=== PATIENT | male | born 1975 | race African-American/Black ===

== ENCOUNTER 2018-10-26 09:24 | Inpatient (IN) | payer OTHER ==
[2018-10-26 10:27] VITALS: BMI 26.6
--- NOTE | 2018-10-26 11:43 | HP ---
CIWA Score Nausea/Vomitin Muscle Tremors: 2 Anxiety: 2 Agitation: 2 Paroxysmal Sweats: 1-Minimal Palms Moist Orientation: 0-Oriented Tacttile Disturbances: 1-Very Mild Itch/Numbness Auditory Disturbances: 1-Very Mild Visual Disturbances: 0-None Headache: 2-Mild CIWA-Ar Total Score: 13 - Admission Criteria [facility]AS[facility] Guidelines: Admission for Medically Managed Detox: Requires at least one of the followin. CIWA greater than 12 2. Seizures within the past 24 hours 3. Delirium tremens within the past 24 hours 4. Hallucinations within the past 24 hours 5. Acute intervention needed for co occurring medical disorder 6. Acute intervention needed for co occurring psychiatric disorder 7. Severe withdrawal that cannot be handled at a lower level of care (continued vomiting, continued diarrhea, abnormal vital signs) requiring intravenous medication and/or fluids 8. Admission ROS [facility] - HPI Chief Complaint: i need help to stop drinking alcohol,cocaine,marijuana,valium and crystal meth Allergies/Adverse Reactions: Allergies Allergy/AdvReac Type Severity Reaction Status Date / Time No Known Allergies Allergy Verified 10/26/18 10:18 History of Present Illness: this 43 years old male with alcohol dependence,also cocaine,marijuana and crystal meth,and valium. withdrawal symptom,seeking detox,last detox 06/30 did not recall the facility multiple admissions in detox syncope hiv positive since 1995,no med weight loss nicotine dependence 1 pack/day,does not want nicotine replacement chronic low back pain and right sciatica for 6 years anxiety,depression,insomnia longest sobriety 8 years plan for rehab after detox history of syphilis treated Exam Limitations: No Limitations - Ebola screening Have you traveled outside of the country in the last 21 days: No Have you had contact with anyone from an Ebola affected area: No Do you have a fever: No - Review of Systems Constitutional: Chills, Loss of Appetite, Malaise, Night Sweats, Changes in sleep, Weakness, Unintentional Wgt. Loss EENT: reports: Nose Congestion Respiratory: reports: No Symptoms reported, Other (childhood asthma no medication) Cardiac: reports: No Symptoms Reported GI: reports: Nausea, Vomiting, Abdominal cramping : reports: No Symptoms Reported Musculoskeletal: reports: Back Pain, Muscle Pain Integumentary: reports: Dryness Neuro: reports: Headache, Tremors Endocrine: reports: No Symptoms Reported Hematology: reports: No Symptoms Reported, Other (hiv) Psychiatric: reports: No Sypmtoms Reported, Judgement Intact, Mood/Affect Appropiate, Orientated x3, Anxious, Depressed, other (insomnia) Patient History - Patient Medical History Hx Anemia: No Hx Asthma: Yes (childhood asthma) Hx Chronic Obstructive Pulmonary Disease (COPD): No Hx Cancer: No Hx Cardiac Disorders: No Hx Congestive Heart Failure: No Hx Hypertension: No Hx Hypercholesterolemia: No Hx Pacemaker: No HX Cerebrovascular Accident: No Hx Seizures: No Hx Dementia: No Hx Diabetes: No Hx Gastrointestinal Disorders: No Hx Liver Disease: No Hx Genitourinary Disorders: No Hx Sexually Transmitted Disorders: Yes (treated for syphilis in the past) Hx Renal Disease (ESRD): No Hx Thyroid Disease: No Hx Human Immunodeficiency Virus (HIV): Yes (since 1995) Hx Hepatitis C: No Hx Depression: Yes (anxiety) Hx Suicide Attempt: No Hx Bipolar Disorder: No Hx Schizophrenia: No Other Medical History: no suicidal,no homicidal,low back pain with sciatica left - Patient Surgical History Past Surgical History: No - PPD History Previous Implant?: Yes Documented Results: Negative w/o proof Implanted On Prior [facility] Admission?: No PPD to be Administered?: No - Smoking Cessation Smoking history: Current every day smoker Have you smoked in the past 12 months: Yes Aproximately how many cigarettes per day: 20 Hx Chewing Tobacco Use: No Initiated information on smoking cessation: Yes 'Breaking Loose' booklet given: 10/26/18 - Substance & Tx. History Hx Alcohol Use: Yes Hx Substance Use: Yes Substance Use Type: Alcohol, Cocaine, Marijuana Hx Substance Use Treatment: Yes (06/30 [facility]) - Substances abused Alcohol Substance route: Oral Frequency: Daily Amount used: 5 CANS OF BEER OF 40 OZS, 14 BOTTLE TEQUILLA Age of first use: 13 Date of last use: 10/26/18 Marijuana/Hashish Substance route: Smoking Frequency: Daily Amount used: 1 BLUNT Age of first use: 12 Date of last use: 10/25/18 Other Other (specify): VALIUM Substance route: Oral Frequency: 3-6 times per week Amount used: 2-4 BARS Age of first use: 24 Date of last use: 10/25/18 Cocaine Substance route: Inhalation Frequency: 3-6 times per week Amount used: $50 Age of first use: 25 Date of last use: 10/26/18 Crystal meth Substance route: Injection Frequency: 3-6 times per week Amount used: 1/2 GRAM Age of first use: 32 Date of last use: 10/26/18 Family Disease History - Family Disease History Family History: Denies Admission Physical Exam [facility] - Vital Signs Vital Signs: Vital Signs - 24 hr 10/26/18 10/26/18 10:04 10:39 Temperature 97.5 F L 97.5 F L Pulse Rate 99 H 99 H Respiratory 20 20 Rate Blood Pressure 107/69 107/69 - Physical General Appearance: Yes: Moderate Distress, Tremorous, Irritable, Sweating, Anxious HEENTM: Yes: Normal ENT Inspection, ISABEL, Pharynx Normal Respiratory: Yes: Lungs Clear, Normal Breath Sounds, No Respiratory Distress ( childhood asthma) Neck: Yes: Within Normal Limits, Supple, Trachea in good position Breast: Yes: Within Normal Limits Cardiology: Yes: Within Normal Limits, Regular Rhythm, Regular Rate, S1, S2 Abdominal: Yes: Within Normal Limits, Normal Bowel Sounds, Non Tender, Flat, Soft Genitourinary: Yes: Within Normal Limits Back: Yes: Muscle Spasm Musculoskeletal: Yes: Back pain, Muscle Pain Extremities: Yes: Within Normal Limits, Normal Range of Motion, Tremors Neurological: Yes: 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 technologist II-XII NML intact, Fully Oriented, Alert, Motor Strength 5/5 Integumentary: Yes: Dry Lymphatic: Yes: Within Normal Limits - Diagnostic (1) Alcohol dependence with uncomplicated withdrawal Current Visit: Yes Status: Acute (2) Weight loss Current Visit: Yes Status: Acute (3) HIV (human immunodeficiency virus infection) Current Visit: Yes Status: Acute (4) Nicotine dependence Current Visit: Yes Status: Acute (5) Low back pain Current Visit: Yes Status: Acute (6) Sciatica of left side Current Visit: Yes Status: Acute (7) Dehydration Current Visit: Yes Status: Acute (8) Insomnia Current Visit: Yes Status: Acute (9) Anxiety and depression Current Visit: Yes Status: Acute Cleared for Admission [facility] - Detox or Rehab [facility] Level of Care: Medically Managed Detox Regimen/Protocol: Librium Breathalyzer - Breathalyzer Breathalyzer: 0.06 Urine Drug Screen - Test Device Lot number: [id number] Expiration date: 08/11/20 - Control Is test valid?: Yes - Results Drug screen NEGATIVE: No Urine drug screen results: THC-Marijuana, SEGUNDO-Cocaine, MET-Methamphetamine, AMP- Amphetamines, BZO-Benzodiazepines Inpatient Rehab Admission - Rehab Decision to Admit Inpatient rehab admission?: No
[2018-10-26] MEDS ORDERED: IBUPROFEN 400 MG TABLET (FP) PO PRN (11:59)
[2018-10-26] MEDS ORDERED: MAG HYDROX/AL HYDROX/SIMETH 30 ML UNIT-DOSE CUP PO PRN (11:59)
[2018-10-26] MEDS ORDERED: MENTHOL/PHENOL 1 EACH UD MM PRN (11:59)
[2018-10-26] MEDS ORDERED: chlordiazePOXIDE HCL 25 MG CAPSULE PO PRN (11:59)
[2018-10-26] MEDS ORDERED: MELATONIN 5 MG TABLETS PO PRN (11:59)
[2018-10-26] MEDS ORDERED: METHOCARBAMOL 500 MG TABLET PO PRN (11:59)
[2018-10-26] MEDS ORDERED: MAGNESIUM CITRATE 300 ML BOTTLE PO PRN (11:59)
[2018-10-26] MEDS ORDERED: hydrOXYzine PAMOATE 25 MG CAPSULE (FP) PO PRN (11:59)
[2018-10-26] MEDS ORDERED: MAGNESIUM HYDROX 2400MG/30ML ORAL SUSPENSION 30 ML CUP PO PRN (11:59)
[2018-10-26] MEDS ORDERED: ACETAMINOPHEN 325 MG TABLET (FP) PO PRN ×2 (11:59)
[2018-10-26] MEDS ORDERED: BISMUTH SUBSALICYLATE 524 MG/30 ML UD PO PRN (11:59)
[2018-10-26] MEDS ORDERED: ALBUTEROL SO4 8 GM HFA INHALER IH PRN (12:08)
[2018-10-26 14:46] LABS: HEMATOCRIT 39.9 % (35.4-49); HEMOGLOBIN 13.8 GM/dL (11.7-16.9); MCH 33.6 pg (25.7-33.7); MCHC 34.6 g/dl (32.0-35.9); MEAN CELL VOLUME 97.2 fl (80-96); MEAN PLT VOLUME 8.9 fl (7.5-11.1); PLATELET COUNT 217 K/MM3 (134-434); RDW 14.6 % (11.9-15.9); WHITE BLOOD COUNT 3.4 K/mm3 (4.0-10.0)
[2018-10-26 15:07] LABS: ALBUMIN 3.5 g/dl (3.4-5.0); BILIRUBIN,TOTAL 0.8 mg/dL (0.2-1); CALCIUM 8.6 mg/dL (8.5-10.1); CREATININE 0.9 mg/dL (0.55-1.3); POTASSIUM 4.2 mmol/L (3.5-5.1); TOT PROT 9.2 g/dl (6.4-8.2)
[2018-10-26] MEDS: chlordiazePOXIDE HCL 25 MG CAPSULE PO SCH ×2 (17:04→22:03)
[2018-10-26] MEDS: THIAMINE HCL 100 MG TABLET (FP) PO SCH (22:03)
[2018-10-26] MEDS: GABAPENTIN 300 MG CAPSULE (FP) PO SCH (22:03)
[2018-10-27] MEDS: chlordiazePOXIDE HCL 25 MG CAPSULE PO SCH ×4 (05:43→22:07)
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
--- NOTE | 2018-10-27 10:35 | PN ---
[facility] CIWA - CIWA Score Nausea/Vomitin-Mild Nausea/No Vomiting Muscle Tremors: 3 Anxiety: 3 Agitation: 3 Paroxysmal Sweats: 1-Minimal Palms Moist Orientation: 1-Uncertain about Date Tacttile Disturbances: 0-None Auditory Disturbances: 0-None Visual Disturbances: 0-None Headache: 0-None Present CIWA-Ar Total Score: 12 S Progress Note (SOAP) Subjective: 43 years old male admitted on 10/26/18 for alcohol withdrawal sx medical history of asthma and bipolar II last psychotropic medication unknown will review mental health recommendation Objective: 10/27/18 10:38 Vital Signs Temperature 97.3 F L 10/27/18 09:03 Pulse Rate 84 10/27/18 09:03 Respiratory Rate 18 10/27/18 09:03 Blood Pressure 112/67 10/27/18 09:03 O2 Sat by Pulse Oximetry (%) Laboratory Last Values WBC 3.4 K/mm3 (4.0-10.0) L 10/26/18 12:00 RBC 4.10 M/mm3 (4.00-5.60) 10/26/18 12:00 Hgb 13.8 GM/dL (11.7-16.9) 10/26/18 12:00 Hct 39.9 % (35.4-49) 10/26/18 12:00 MCV 97.2 fl (80-96) H 10/26/18 12:00 MCH 33.6 pg (25.7-33.7) 10/26/18 12:00 MCHC 34.6 g/dl (32.0-35.9) 10/26/18 12:00 RDW 14.6 % (11.9-15.9) 10/26/18 12:00 Plt Count 217 K/MM3 (134-434) 10/26/18 12:00 MPV 8.9 fl (7.5-11.1) 10/26/18 12:00 Sodium 138 mmol/L (136-145) 10/26/18 12:00 Potassium 4.2 mmol/L (3.5-5.1) 10/26/18 12:00 Chloride 102 mmol/L (98-107) 10/26/18 12:00 Carbon Dioxide 31 mmol/L (21-32) 10/26/18 12:00 Anion Gap 6 MMOL/L (8-16) L 10/26/18 12:00 BUN 9.0 mg/dL (7-18) 10/26/18 12:00 Creatinine 0.9 mg/dL (0.55-1.3) 10/26/18 12:00 Est GFR (CKD-EPI)AfAm 119.13 10/26/18 12:00 Est GFR (CKD-EPI)NonAf 102.79 10/26/18 12:00 Random Glucose 100 mg/dL (74-106) 10/26/18 12:00 Calcium 8.6 mg/dL (8.5-10.1) 10/26/18 12:00 Total Bilirubin 0.8 mg/dL (0.2-1) 10/26/18 12:00 AST 101 U/L (15-37) H 10/26/18 12:00 ALT 166 U/L (13-61) H 10/26/18 12:00 Alkaline Phosphatase 96 U/L (45-117) 10/26/18 12:00 Total Protein 9.2 g/dl (6.4-8.2) H 10/26/18 12:00 Albumin 3.5 g/dl (3.4-5.0) 10/26/18 12:00 lab noted ast elevation repeat ast Assessment: 10/27/18 10:40 alcohol withdrawal sx Plan: continue alcohol detox
[2018-10-27] MEDS: PRENATAL VITAMINS W/ FOLIC ACID TABLET (FP) PO SCH (10:54)
[2018-10-27] MEDS: GABAPENTIN 300 MG CAPSULE (FP) PO SCH ×2 (10:54→22:07)
[2018-10-27] MEDS: ASPIRIN COATED 81 MG TABLET.EC PO SCH (10:55)
[2018-10-27 11:20] LABS: RPR REACTIVE 1:8 (NONREACTIVE)
[2018-10-27] MEDS ORDERED: PENICILLIN G BENZATHINE 2,400,000 UNIT/4 ML PFS IM ONE (14:21)
[2018-10-27 14:30] LABS: TREPONEMA ANTIBODY REACTIVE (NONREACTIVE)
--- NOTE | 2018-10-27 14:46 | EKG ---
Test Reason : Blood Pressure : / mmHG Vent. Rate : 085 BPM Atrial Rate : 085 BPM P-R Int : 148 ms QRS Dur : 082 ms QT Int : 382 ms P-R-T Axes : 072 065 060 degrees QTc Int : 454 ms NORMAL SINUS RHYTHM NORMAL ECG NO PREVIOUS ECGS AVAILABLE Confirmed by Lowell Villela MD ([id number]) on 10/27/2018 2:45:40 PM Referred By: LEBRON SHEPPARD Confirmed By:Lowell Villela MD
[2018-10-27 17:08] LABS: PH,URINE 5.5 (5.0-8.0); URINE APPEARANCE CLEAR; URINE BILIRUBIN NEGATIVE (NEGATIVE); URINE COLOR DK YELLOW; URINE GLUCOSE (UA) NEGATIVE (NEGATIVE); URINE KETONE NEGATIVE (NEGATIVE); URINE LEUK ESTERASE NEGATIVE (NEGATIVE); URINE NITRITE NEGATIVE (NEGATIVE); URINE PROTEIN NEGATIVE (NEGATIVE)
[2018-10-27] MEDS: QUEtiapine FUMARATE 100 MG TABLET (FP) PO SCH (22:07)
[2018-10-27] MEDS: THIAMINE HCL 100 MG TABLET (FP) PO SCH (22:07)
[2018-10-28] MEDS: chlordiazePOXIDE HCL 25 MG CAPSULE PO SCH ×4 (06:44→22:29)
[2018-10-28] MEDS: GABAPENTIN 300 MG CAPSULE (FP) PO SCH ×2 (10:32→22:29)
[2018-10-28] MEDS: PRENATAL VITAMINS W/ FOLIC ACID TABLET (FP) PO SCH (10:32)
[2018-10-28] MEDS: ASPIRIN COATED 81 MG TABLET.EC PO SCH (10:33)
--- NOTE | 2018-10-28 13:17 | PN ---
[facility] CIWA - CIWA Score Nausea/Vomitin-Mild Nausea/No Vomiting Muscle Tremors: 3 Anxiety: 3 Agitation: 3 Paroxysmal Sweats: 1-Minimal Palms Moist Orientation: 0-Oriented Tacttile Disturbances: 0-None Auditory Disturbances: 0-None Visual Disturbances: 0-None Headache: 0-None Present CIWA-Ar Total Score: 11 [facility] Progress Note (SOAP) Subjective: received Penicillin IM yesterday for + rpr tolerate well ambulating on hallway social with peers tremor mild anxiety Objective: 10/28/18 13:19 Vital Signs Temperature 97.0 F L 10/28/18 13:12 Pulse Rate 93 H 10/28/18 13:12 Respiratory Rate 20 10/28/18 13:12 Blood Pressure 111/70 10/28/18 13:12 O2 Sat by Pulse Oximetry (%) Laboratory Last Values WBC 3.4 K/mm3 (4.0-10.0) L 10/26/18 12:00 RBC 4.10 M/mm3 (4.00-5.60) 10/26/18 12:00 Hgb 13.8 GM/dL (11.7-16.9) 10/26/18 12:00 Hct 39.9 % (35.4-49) 10/26/18 12:00 MCV 97.2 fl (80-96) H 10/26/18 12:00 MCH 33.6 pg (25.7-33.7) 10/26/18 12:00 MCHC 34.6 g/dl (32.0-35.9) 10/26/18 12:00 RDW 14.6 % (11.9-15.9) 10/26/18 12:00 Plt Count 217 K/MM3 (134-434) 10/26/18 12:00 MPV 8.9 fl (7.5-11.1) 10/26/18 12:00 Sodium 138 mmol/L (136-145) 10/26/18 12:00 Potassium 4.2 mmol/L (3.5-5.1) 10/26/18 12:00 Chloride 102 mmol/L (98-107) 10/26/18 12:00 Carbon Dioxide 31 mmol/L (21-32) 10/26/18 12:00 Anion Gap 6 MMOL/L (8-16) L 10/26/18 12:00 BUN 9.0 mg/dL (7-18) 10/26/18 12:00 Creatinine 0.9 mg/dL (0.55-1.3) 10/26/18 12:00 Est GFR (CKD-EPI)AfAm 119.13 10/26/18 12:00 Est GFR (CKD-EPI)NonAf 102.79 10/26/18 12:00 Random Glucose 100 mg/dL (74-106) 10/26/18 12:00 Calcium 8.6 mg/dL (8.5-10.1) 10/26/18 12:00 Total Bilirubin 0.8 mg/dL (0.2-1) 10/26/18 12:00 AST 101 U/L (15-37) H 10/26/18 12:00 ALT 166 U/L (13-61) H 10/26/18 12:00 Alkaline Phosphatase 96 U/L (45-117) 10/26/18 12:00 Total Protein 9.2 g/dl (6.4-8.2) H 10/26/18 12:00 Albumin 3.5 g/dl (3.4-5.0) 10/26/18 12:00 Urine Color Dk yellow 10/27/18 13:40 Urine Appearance Clear 10/27/18 13:40 Urine pH 5.5 (5.0-8.0) 10/27/18 13:40 Ur Specific [place] 1.017 (1.010-1.035) 10/27/18 13:40 Urine Protein Negative (NEGATIVE) 10/27/18 13:40 Urine Glucose (UA) Negative (NEGATIVE) 10/27/18 13:40 Urine Ketones Negative (NEGATIVE) 10/27/18 13:40 Urine Blood Negative (NEGATIVE) 10/27/18 13:40 Urine Nitrite Negative (NEGATIVE) 10/27/18 13:40 Urine Bilirubin Negative (NEGATIVE) 10/27/18 13:40 Urine Urobilinogen 1.0 mg/dL (0.2-1.0) 10/27/18 13:40 Ur Leukocyte Esterase Negative (NEGATIVE) 10/27/18 13:40 RPR Titer Reactive 1:8 (NONREACTIVE) H 10/26/18 12:00 T.pallidum Ab (MHA) Reactive (NONREACTIVE) 10/26/18 12:00 lab noted Assessment: 10/28/18 13:19 alcohol withdrawal sx Plan: continue alcohol detox
[2018-10-28] MEDS: QUEtiapine FUMARATE 100 MG TABLET (FP) PO SCH (22:29)
[2018-10-28] MEDS: THIAMINE HCL 100 MG TABLET (FP) PO SCH (22:29)
[2018-10-29] MEDS ORDERED: chlordiazePOXIDE HCL 10 MG CAPSULE PO PRN
[2018-10-29] MEDS: chlordiazePOXIDE HCL 10 MG CAPSULE PO SCH ×4 (05:26→22:19)
[2018-10-29] MEDS: PRENATAL VITAMINS W/ FOLIC ACID TABLET (FP) PO SCH (10:46)
[2018-10-29] MEDS: GABAPENTIN 300 MG CAPSULE (FP) PO SCH ×2 (10:46→22:18)
[2018-10-29] MEDS: ASPIRIN COATED 81 MG TABLET.EC PO SCH (10:46)
--- NOTE | 2018-10-29 13:57 | PN ---
[facility] CIWA - CIWA Score Nausea/Vomitin-No Nausea/No Vomiting Muscle Tremors: 2 Anxiety: 2 Agitation: 2 Paroxysmal Sweats: 1-Minimal Palms Moist Orientation: 0-Oriented Tacttile Disturbances: 0-None Auditory Disturbances: 0-None Visual Disturbances: 0-None Headache: 1-Very Mild CIWA-Ar Total Score: 8 S Progress Note (SOAP) Subjective: mild tremor otherwise doing ok mild anxiety tolerate food and fluid well Objective: 10/29/18 13:58 Vital Signs Temperature 96.7 F L 10/29/18 13:30 Pulse Rate 89 10/29/18 13:30 Respiratory Rate 18 10/29/18 13:30 Blood Pressure 103/66 10/29/18 13:30 O2 Sat by Pulse Oximetry (%) Laboratory Last Values WBC 3.4 K/mm3 (4.0-10.0) L 10/26/18 12:00 RBC 4.10 M/mm3 (4.00-5.60) 10/26/18 12:00 Hgb 13.8 GM/dL (11.7-16.9) 10/26/18 12:00 Hct 39.9 % (35.4-49) 10/26/18 12:00 MCV 97.2 fl (80-96) H 10/26/18 12:00 MCH 33.6 pg (25.7-33.7) 10/26/18 12:00 MCHC 34.6 g/dl (32.0-35.9) 10/26/18 12:00 RDW 14.6 % (11.9-15.9) 10/26/18 12:00 Plt Count 217 K/MM3 (134-434) 10/26/18 12:00 MPV 8.9 fl (7.5-11.1) 10/26/18 12:00 Sodium 138 mmol/L (136-145) 10/26/18 12:00 Potassium 4.2 mmol/L (3.5-5.1) 10/26/18 12:00 Chloride 102 mmol/L (98-107) 10/26/18 12:00 Carbon Dioxide 31 mmol/L (21-32) 10/26/18 12:00 Anion Gap 6 MMOL/L (8-16) L 10/26/18 12:00 BUN 9.0 mg/dL (7-18) 10/26/18 12:00 Creatinine 0.9 mg/dL (0.55-1.3) 10/26/18 12:00 Est GFR (CKD-EPI)AfAm 119.13 10/26/18 12:00 Est GFR (CKD-EPI)NonAf 102.79 10/26/18 12:00 Random Glucose 100 mg/dL (74-106) 10/26/18 12:00 Calcium 8.6 mg/dL (8.5-10.1) 10/26/18 12:00 Total Bilirubin 0.8 mg/dL (0.2-1) 10/26/18 12:00 AST 80 U/L (15-37) H 10/29/18 07:00 ALT 166 U/L (13-61) H 10/26/18 12:00 Alkaline Phosphatase 96 U/L (45-117) 10/26/18 12:00 Total Protein 9.2 g/dl (6.4-8.2) H 10/26/18 12:00 Albumin 3.5 g/dl (3.4-5.0) 10/26/18 12:00 Urine Color Dk yellow 10/27/18 13:40 Urine Appearance Clear 10/27/18 13:40 Urine pH 5.5 (5.0-8.0) 10/27/18 13:40 Ur Specific [place] 1.017 (1.010-1.035) 10/27/18 13:40 Urine Protein Negative (NEGATIVE) 10/27/18 13:40 Urine Glucose (UA) Negative (NEGATIVE) 10/27/18 13:40 Urine Ketones Negative (NEGATIVE) 10/27/18 13:40 Urine Blood Negative (NEGATIVE) 10/27/18 13:40 Urine Nitrite Negative (NEGATIVE) 10/27/18 13:40 Urine Bilirubin Negative (NEGATIVE) 10/27/18 13:40 Urine Urobilinogen 1.0 mg/dL (0.2-1.0) 10/27/18 13:40 Ur Leukocyte Esterase Negative (NEGATIVE) 10/27/18 13:40 RPR Titer Reactive 1:8 (NONREACTIVE) H 10/26/18 12:00 T.pallidum Ab (MHA) Reactive (NONREACTIVE) 10/26/18 12:00 TB (QFT) Incubation (.) 10/26/18 12:00 TB Test (QFT) Nil 0.05 IU/mL (.) 10/26/18 12:00 TB Test (QFT) Mitogen >10.00 IU/mL (.) 10/26/18 12:00 TB Test (QFT) Antigen 0.08 IU/mL (.) 10/26/18 12:00 TB Test (QFT) Negative (Negative) 10/26/18 12:00 TB Positive Criteria (.) 10/26/18 12:00 lab noted Assessment: 10/29/18 13:58 alcohol withdrawal sx Plan: continue alcohol detox
[2018-10-29] MEDS: QUEtiapine FUMARATE 100 MG TABLET (FP) PO SCH (22:18)
[2018-10-29] MEDS: THIAMINE HCL 100 MG TABLET (FP) PO SCH (22:18)
[2018-10-30] MEDS ORDERED: chlordiazePOXIDE HCL 10 MG CAPSULE PO SCH (05:00)
[2018-10-30 09:26] VITALS: BP 105/69; PULSE 96; TEMP 98.1
[2018-10-30] MEDS: PRENATAL VITAMINS W/ FOLIC ACID TABLET (FP) PO SCH (10:28)
[2018-10-30] MEDS: GABAPENTIN 300 MG CAPSULE (FP) PO SCH (10:28)
[2018-10-30] MEDS: ASPIRIN COATED 81 MG TABLET.EC PO SCH (10:29)
--- NOTE | 2018-10-30 18:17 | PN ---
[facility] CIWA - CIWA Score Nausea/Vomitin-No Nausea/No Vomiting Muscle Tremors: None Anxiety: 0-No Anxiety, at Ease Agitation: 1-Slight > Activity Paroxysmal Sweats: No Perspiration Orientation: 0-Oriented Tacttile Disturbances: 0-None Auditory Disturbances: 0-None Visual Disturbances: 0-None Headache: 0-None Present CIWA-Ar Total Score: 1 [facility] Progress Note (SOAP) Subjective: Patient denies current Withdrawal / Detox symptoms and reports that he feels well overall at this time. Objective: PATIENT A & O X 3, OBSERVED AMBULATING ON UNIT UNASSISTED. IN NO ACUTE DISTRESS. 10/30/18 18:16 Vital Signs Temperature 98.1 F 10/30/18 09:25 Pulse Rate 96 H 10/30/18 09:25 Respiratory Rate 16 10/30/18 09:25 Blood Pressure 105/69 10/30/18 09:25 O2 Sat by Pulse Oximetry (%) Laboratory Tests 10/26/18 10/26/18 10/26/18 12:00 12:00 12:00 WBC 3.4 L RBC 4.10 Hgb 13.8 Hct 39.9 MCV 97.2 H MCH 33.6 MCHC 34.6 RDW 14.6 Plt Count 217 MPV 8.9 Sodium 138 Potassium 4.2 Chloride 102 Carbon Dioxide 31 Anion Gap 6 L BUN 9.0 Creatinine 0.9 Est GFR (CKD-EPI)AfAm 119.13 Est GFR (CKD-EPI)NonAf 102.79 Random Glucose 100 Calcium 8.6 Total Bilirubin 0.8 AST 101 H ALT 166 H Alkaline Phosphatase 96 Total Protein 9.2 H Albumin 3.5 Urine Color Urine Appearance Urine pH Ur Specific [place] Urine Protein Urine Glucose (UA) Urine Ketones Urine Blood Urine Nitrite Urine Bilirubin Urine Urobilinogen Ur Leukocyte Esterase RPR Titer Reactive 1:8 H T.pallidum Ab (MHA) Reactive TB (QFT) Incubation TB Test (QFT) Nil TB Test (QFT) Mitogen TB Test (QFT) Antigen TB Test (QFT) TB Positive Criteria 10/26/18 10/27/18 10/29/18 12:00 13:40 07:00 WBC RBC Hgb Hct MCV MCH MCHC RDW Plt Count MPV Sodium Potassium Chloride Carbon Dioxide Anion Gap BUN Creatinine Est GFR (CKD-EPI)AfAm Est GFR (CKD-EPI)NonAf Random Glucose Calcium Total Bilirubin AST 80 H ALT Alkaline Phosphatase Total Protein Albumin Urine Color Dk yellow Urine Appearance Clear Urine pH 5.5 Ur Specific [place] 1.017 Urine Protein Negative Urine Glucose (UA) Negative Urine Ketones Negative Urine Blood Negative Urine Nitrite Negative Urine Bilirubin Negative Urine Urobilinogen 1.0 Ur Leukocyte Esterase Negative RPR Titer T.pallidum Ab (MHA) TB (QFT) Incubation TB Test (QFT) Nil 0.05 TB Test (QFT) Mitogen >10.00 TB Test (QFT) Antigen 0.08 TB Test (QFT) Negative TB Positive Criteria LABS NOTED. Assessment: 10/30/18 18:16 COMPLETION OF DETOX REGIMEN. 10/30/18 18:17 Plan: SINCE PATIENT DENIES CURRENT WITHDRAWAL / DETOX SYMPTOMS AND REPORTS THAT HE FEELS WELL OVERALL, AT PATIENTS REQUEST, HE WAS GRANTED AN EARLY DISCHARGE FROM DETOX UNIT TODAY SO THAT HE MAY PROCEED ON TO [facility] - [facility] ([place], [place]).
--- NOTE | 2018-10-30 18:24 | DS ---
[facility] Detox Discharge Summary Admission Date: 10/26/18 Discharge Date: 10/30/18 - History Present History: Alcohol Dependence, Cocaine Dependence Additional Comments: PATIENT DENIES CURRENT WITHDRAWAL / DETOX SYMPTOMS AND REPORTS THAT HE FEELS WELL OVERALL AT TIME OF DISCHARGE FROM DETOX UNIT. PATIENT GOING TO [facility] ([place]) FOR AFTERCARE. PATIENT ADVISED TO FOLLOW-UP WITH PACKAGING ASSEMBLER AFTER DISCHARGE FROM REHAB FOR GENERAL MEDICAL ASSESSMENT AND FOR ELEVATED LIVER ENZYMES AND FOR LOW WBC LEVEL NOTED ON DETOX ADMISSION LABORATORY ASSESSMENT. PATIENT VERBALIZED UNDERSTANDING OF RECOMMENDATION. COPIES OF RESULTS OF ALL LABS DRAWN WHILE ADMITTED FOR DETOX GIVEN TO PATIENT AT TIME OF DISCHARGE FROM DETOX UNIT. PATIENT WAS DISCHARGED FROM DETOX UNIT IN STABLE MEDICAL CONDITION. Pertinent Past History: H.I.V., Nicotine Dependence, History Of Lower Back Pain, History of Sciatica ( Left-Sided), Anxiety, Depression, Dehydration, Insomnia, History Of Mood Disorder, Methamphetamine Dependence, History Of Syncope, History Of Syphilis ( Treated), History Of Asthma (During Childhood). - Physical Exam Results Vital Signs: Vital Signs Temperature 98.1 F 10/30/18 09:25 Pulse Rate 96 H 10/30/18 09:25 Respiratory Rate 16 10/30/18 09:25 Blood Pressure 105/69 10/30/18 09:25 O2 Sat by Pulse Oximetry (%) Pertinent Admission Physical Exam Findings: WITHDRAWAL SYMPTOMS. Laboratory Tests 10/26/18 10/26/18 10/26/18 12:00 12:00 12:00 WBC 3.4 L RBC 4.10 Hgb 13.8 Hct 39.9 MCV 97.2 H MCH 33.6 MCHC 34.6 RDW 14.6 Plt Count 217 MPV 8.9 Sodium 138 Potassium 4.2 Chloride 102 Carbon Dioxide 31 Anion Gap 6 L BUN 9.0 Creatinine 0.9 Est GFR (CKD-EPI)AfAm 119.13 Est GFR (CKD-EPI)NonAf 102.79 Random Glucose 100 Calcium 8.6 Total Bilirubin 0.8 AST 101 H ALT 166 H Alkaline Phosphatase 96 Total Protein 9.2 H Albumin 3.5 Urine Color Urine Appearance Urine pH Ur Specific Cascade Urine Protein Urine Glucose (UA) Urine Ketones Urine Blood Urine Nitrite Urine Bilirubin Urine Urobilinogen Ur Leukocyte Esterase RPR Titer Reactive 1:8 H T.pallidum Ab (MHA) Reactive TB (QFT) Incubation TB Test (QFT) Nil TB Test (QFT) Mitogen TB Test (QFT) Antigen TB Test (QFT) TB Positive Criteria 10/26/18 10/27/18 10/29/18 12:00 13:40 07:00 WBC RBC Hgb Hct MCV MCH MCHC RDW Plt Count MPV Sodium Potassium Chloride Carbon Dioxide Anion Gap BUN Creatinine Est GFR (CKD-EPI)AfAm Est GFR (CKD-EPI)NonAf Random Glucose Calcium Total Bilirubin AST 80 H ALT Alkaline Phosphatase Total Protein Albumin Urine Color Dk yellow Urine Appearance Clear Urine pH 5.5 Ur Specific Cascade 1.017 Urine Protein Negative Urine Glucose (UA) Negative Urine Ketones Negative Urine Blood Negative Urine Nitrite Negative Urine Bilirubin Negative Urine Urobilinogen 1.0 Ur Leukocyte Esterase Negative RPR Titer T.pallidum Ab (MHA) TB (QFT) Incubation TB Test (QFT) Nil 0.05 TB Test (QFT) Mitogen >10.00 TB Test (QFT) Antigen 0.08 TB Test (QFT) Negative TB Positive Criteria LABS NOTED. - Treatment Hospital Course: Detox Protocol Followed, Detoxed Safely, Responded well, Discharged Condition Good, Rehab Referral Accepted Patient has Accepted a Rehab Referral to: [facility] ([place], [place]). - Medication Discharge Medications: Ambulatory Orders Gabapentin [Neurontin] 300 mg PO BID 10/26/18 Quetiapine Fumarate [Seroquel -] 100 mg PO HS 10/26/18 - Diagnosis (1) Alcohol dependence with uncomplicated withdrawal Status: Acute (2) Anxiety and depression Status: Acute (3) Cocaine dependence Status: Acute Qualifiers: Substance use status: uncomplicated Qualified Code(s): F14.20 - Cocaine dependence, uncomplicated (4) Dehydration Status: Acute (5) Drug-induced mood disorder Status: Acute (6) HIV (human immunodeficiency virus infection) Status: Acute Qualifiers: HIV symptom status: unspecified Qualified Code(s): B20 - Human immunodeficiency virus [HIV] disease (7) Insomnia Status: Acute Qualifiers: Insomnia type: unspecified Qualified Code(s): G47.00 - Insomnia, unspecified (8) Low back pain Status: Acute Qualifiers: Chronicity: unspecified Back pain laterality: unspecified Sciatica presence: with sciatica Sciatica laterality: sciatica of right side Qualified Code(s): M54.41 - Lumbago with sciatica, right side (9) Methamphetamine dependence Status: Acute (10) Nicotine dependence Status: Acute Qualifiers: Nicotine product type: cigarettes Substance use status: uncomplicated Qualified Code(s): F17.210 - Nicotine dependence, cigarettes, uncomplicated (11) Sciatica of left side Status: Acute (12) Substance-induced sleep disorder Status: Acute (13) Weight loss Status: Acute (14) Mood disorder Status: Chronic - AMA Did Patient Leave Against Medical Advice: No
[2018-10-31] MEDS ORDERED: chlordiazePOXIDE HCL 10 MG CAPSULE PO ONE (05:00)
== END 2018-10-30 11:55 | disposition home or self-care (01) | DRG 774 ==
LOC: YASAS 09:24 → Y3N 11:58
PROVIDERS: ADMIT Surgery; ATTEND Surgery
PROC: HZ2ZZZZ Detoxification Services for Substance Abuse Treatment (ICD-10-PCS; principal; 2018-10-26)
DX: F10.230 Alcohol dependence with withdrawal, uncomplicated (principal); F14.20 Cocaine dependence, uncomplicated; F15.20 Other stimulant dependence, uncomplicated; F17.210 Nicotine dependence, cigarettes, uncomplicated; F32.9 Major depressive disorder, single episode, unspecified; F41.9 Anxiety disorder, unspecified; F19.24 Other psychoactive substance dependence with psychoactive substance-induced mood disorder; F19.282 Other psychoactive substance dependence with psychoactive substance-induced sleep disorder; F39 Unspecified mood [affective] disorder; E86.0 Dehydration; Z21 Asymptomatic human immunodeficiency virus [HIV] infection status; G47.00 Insomnia, unspecified; M54.41 Lumbago with sciatica, right side; M54.42 Lumbago with sciatica, left side; R63.4 Abnormal weight loss; R74.0 Nonspecific elevation of levels of transaminase and lactic acid dehydrogenase [LDH]; Z87.438 Personal history of other diseases of male genital organs
CPT/HCPCS: 36415; 80053; 81003; 84450; 85027; 86480; 86593; 86780; 93005; 93010

== ENCOUNTER 2020-10-19 18:13 | Inpatient (IN) | payer OTHER ==
[2020-10-19 21:10] VITALS: BMI 33.5
[2020-10-19] MEDS ORDERED: LORazepam 1 MG TABLET PO PRN (21:33)
[2020-10-19] MEDS ORDERED: MAGNESIUM CITRATE 300 ML BOTTLE PO PRN (21:39)
[2020-10-19] MEDS ORDERED: ACETAMINOPHEN 325 MG TABLET (FP) PO PRN ×2 (21:39)
[2020-10-19] MEDS ORDERED: MENTHOL/PHENOL 1 EACH UD MM PRN (21:39)
[2020-10-19] MEDS ORDERED: BISMUTH SUBSALICYLATE 524 MG/30 ML PO PRN (21:39)
[2020-10-19] MEDS ORDERED: MAGNESIUM HYDROX 2400MG/30ML ORAL SUSPENSION 30 ML CUP PO PRN (21:39)
[2020-10-19] MEDS ORDERED: MAG HYDROX/AL HYDROX/SIMETH 30 ML UNIT-DOSE CUP PO PRN (21:39)
[2020-10-19] MEDS ORDERED: NICOTINE POLACRILEX 2 MG GUM BUC PRN (21:39)
[2020-10-19] MEDS ORDERED: ONDANSETRON *ODT* 4 MG TABLET SL PRN (21:39)
[2020-10-19] MEDS ORDERED: hydrOXYzine PAMOATE 25 MG CAPSULE (FP) PO ONE (23:16)
[2020-10-19] MEDS ORDERED: LORazepam 2 MG TABLET ONE (23:16)
[2020-10-19] MEDS: LORazepam 2 MG TABLET PO SCH (23:26)
[2020-10-19] MEDS: hydrOXYzine PAMOATE 25 MG CAPSULE (FP) PO SCH (23:26)
[2020-10-19] MEDS: MELATONIN 5 MG TABLETS PO SCH (23:26)
[2020-10-19] MEDS: THIAMINE HCL 100 MG TABLET (FP) PO SCH (23:27)
[2020-10-20] MEDS ORDERED: METHOCARBAMOL 500 MG TABLET ONE (04:36)
[2020-10-20] MEDS: METHOCARBAMOL 500 MG TABLET PO PRN ×2 (04:40→11:46)
[2020-10-20] MEDS ORDERED: LORazepam 2 MG TABLET ONE (06:08)
[2020-10-20] MEDS ORDERED: IBUPROFEN 400 MG TABLET (FP) PO ONE (06:09)
[2020-10-20] MEDS: LORazepam 2 MG TABLET PO SCH ×4 (06:16→23:07)
[2020-10-20] MEDS: IBUPROFEN 400 MG TABLET (FP) PO PRN (06:17)
[2020-10-20] MEDS ORDERED: hydrOXYzine PAMOATE 25 MG CAPSULE (FP) PO ONE (07:10)
[2020-10-20] MEDS: hydrOXYzine PAMOATE 25 MG CAPSULE (FP) PO SCH ×5 (07:14→23:07)
[2020-10-20] MEDS: PRENATAL VITAMINS W/ FOLIC ACID TABLET (FP) PO SCH (11:46)
[2020-10-20 13:15] LABS: HEMATOCRIT 38.3 % (35.4-49); HEMOGLOBIN 13.4 GM/dL (11.7-16.9); MCH 32.8 pg (25.7-33.7); MCHC 34.9 g/dl (32.0-35.9); MEAN CELL VOLUME 93.9 fl (80-96); MEAN PLT VOLUME 9.3 fl (7.5-11.1); PLATELET COUNT 173 10^3/uL (134-434); RBC 4.08 M/mm3 (4.00-5.60); RDW 13.3 % (11.9-15.9); WHITE BLOOD COUNT 3.4 K/mm3 (4.0-10.0)
[2020-10-20 13:53] LABS: ALBUMIN 3.6 g/dl (3.4-5.0); BLOOD UREA NITROGEN 13.1 mg/dL (7-18); CALCIUM 8.7 mg/dL (8.5-10.1)
[2020-10-20 13:56] LABS: CREATININE 0.8 mg/dL (0.55-1.3)
[2020-10-20 13:58] LABS: BILIRUBIN,TOTAL 0.7 mg/dL (0.2-1); TOT PROT 7.5 g/dl (6.4-8.2)
[2020-10-20] MEDS: THIAMINE HCL 100 MG TABLET (FP) PO SCH (23:07)
[2020-10-20] MEDS: MELATONIN 5 MG TABLETS PO SCH (23:07)
[2020-10-21] MEDS: METHOCARBAMOL 500 MG TABLET PO PRN (02:16)
[2020-10-21] MEDS: hydrOXYzine PAMOATE 25 MG CAPSULE (FP) PO SCH ×5 (06:13→22:53)
[2020-10-21] MEDS: LORazepam 1 MG TABLET PO SCH ×5 (06:14→22:53)
[2020-10-21] MEDS: PRENATAL VITAMINS W/ FOLIC ACID TABLET (FP) PO SCH (10:45)
[2020-10-21] MEDS: IBUPROFEN 400 MG TABLET (FP) PO PRN ×2 (10:50→17:58)
[2020-10-21] MEDS: MELATONIN 5 MG TABLETS PO SCH (22:53)
[2020-10-21] MEDS: THIAMINE HCL 100 MG TABLET (FP) PO SCH (22:53)
[2020-10-22] MEDS ORDERED: LORazepam 0.5 MG TABLET PO PRN
[2020-10-22] MEDS: hydrOXYzine PAMOATE 25 MG CAPSULE (FP) PO SCH ×5 (05:22→22:30)
[2020-10-22] MEDS: LORazepam 0.5 MG TABLET PO SCH ×4 (05:22→22:29)
[2020-10-22] MEDS: PRENATAL VITAMINS W/ FOLIC ACID TABLET (FP) PO SCH (10:30)
[2020-10-22] MEDS: METHOCARBAMOL 500 MG TABLET PO PRN (10:32)
[2020-10-22] MEDS: THIAMINE HCL 100 MG TABLET (FP) PO SCH (22:30)
[2020-10-22] MEDS: MELATONIN 5 MG TABLETS PO SCH (22:30)
[2020-10-23] MEDS ORDERED: LORazepam 0.5 MG TABLET PO ONE (05:00)
[2020-10-23] MEDS: hydrOXYzine PAMOATE 25 MG CAPSULE (FP) PO SCH ×4 (06:02→18:00)
[2020-10-23] MEDS: PRENATAL VITAMINS W/ FOLIC ACID TABLET (FP) PO SCH (10:19)
[2020-10-23 18:02] VITALS: BP 132/92; PULSE 104; TEMP 96.4
== END 2020-10-23 18:01 | disposition other institution (70) | DRG 774 ==
LOC: YASAS 18:13 → Y3N 10-20 10:15
PROVIDERS: ADMIT Allergy & Immunology; ATTEND Allergy & Immunology
PROC: HZ2ZZZZ Detoxification Services for Substance Abuse Treatment (ICD-10-PCS; principal; 2020-10-20)
DX: F13.230 Sedative, hypnotic or anxiolytic dependence with withdrawal, uncomplicated (principal); F14.20 Cocaine dependence, uncomplicated; F15.20 Other stimulant dependence, uncomplicated; F12.20 Cannabis dependence, uncomplicated; F17.210 Nicotine dependence, cigarettes, uncomplicated; F25.9 Schizoaffective disorder, unspecified; F32.9 Major depressive disorder, single episode, unspecified; F43.10 Post-traumatic stress disorder, unspecified; Z21 Asymptomatic human immunodeficiency virus [HIV] infection status
CPT/HCPCS: 36415; 80053; 85027; 86593; 86780; C9803; U0003; U0005

== ENCOUNTER 2020-10-23 18:01 | Inpatient (IN) | payer OTHER ==
[2020-10-23] MEDS ORDERED: MAG HYDROX/AL HYDROX/SIMETH 30 ML UNIT-DOSE CUP PO PRN (19:38)
[2020-10-23] MEDS ORDERED: P-EPHED 60MG/TRIPROLIDI 2.5MG TABLET PO PRN (19:38)
[2020-10-23] MEDS ORDERED: MENTHOL/PHENOL 1 EACH UD MM PRN (19:38)
[2020-10-23] MEDS ORDERED: LOPERAMIDE HCL 2 MG CAPSULE PO PRN (19:38)
[2020-10-23] MEDS ORDERED: MAGNESIUM CITRATE 300 ML BOTTLE PO PRN (19:38)
[2020-10-23] MEDS ORDERED: ACETAMINOPHEN 325 MG TABLET (FP) PO PRN (19:38)
[2020-10-23] MEDS ORDERED: NICOTINE POLACRILEX 2 MG GUM BUC PRN (19:38)
[2020-10-23] MEDS ORDERED: guaiFENesin 200 MG/10 ML 10 ML UNIT-DOSE CUPS PO PRN (19:38)
[2020-10-23] MEDS ORDERED: MAGNESIUM HYDROX 2400MG/30ML ORAL SUSPENSION 30 ML CUP PO PRN (19:38)
[2020-10-23] MEDS: NICOTINE 7 MG/24 HOURS TOPICAL PATCH TD SCH (20:38)
[2020-10-23] MEDS: PRENATAL VITAMINS W/ FOLIC ACID TABLET (FP) PO SCH (20:38)
[2020-10-23] MEDS: hydrOXYzine PAMOATE 25 MG CAPSULE (FP) PO SCH (21:42)
[2020-10-23] MEDS: THIAMINE HCL 100 MG TABLET (FP) PO SCH (21:42)
[2020-10-23] MEDS: IBUPROFEN 400 MG TABLET (FP) PO PRN (21:43)
[2020-10-23] MEDS ORDERED: MELATONIN 5 MG TABLETS PO SCH (22:00)
[2020-10-24] MEDS: hydrOXYzine PAMOATE 25 MG CAPSULE (FP) PO SCH ×5 (07:01→21:14)
[2020-10-24] MEDS: IBUPROFEN 400 MG TABLET (FP) PO PRN (07:01)
[2020-10-24] MEDS: NICOTINE 7 MG/24 HOURS TOPICAL PATCH TD SCH (09:50)
[2020-10-24] MEDS: PRENATAL VITAMINS W/ FOLIC ACID TABLET (FP) PO SCH (09:50)
[2020-10-24] MEDS ORDERED: LIDOCAINE 5% TOPICAL PATCH TP ONE (15:36)
[2020-10-24] MEDS: QUEtiapine FUMARATE 50 MG TABLET PO SCH (21:14)
[2020-10-24] MEDS: GABAPENTIN 300 MG CAPSULE PO SCH (21:14)
[2020-10-24] MEDS: THIAMINE HCL 100 MG TABLET (FP) PO SCH (21:14)
[2020-10-24] MEDS: LIDOCAINE PATCH REMOVAL MC SCH (21:40)
[2020-10-24] MEDS ORDERED: LIDOCAINE PATCH REMOVAL MC SCH (22:00)
[2020-10-25] MEDS: hydrOXYzine PAMOATE 25 MG CAPSULE (FP) PO SCH ×2 (06:54→10:01)
[2020-10-25] MEDS ORDERED: PT OWN MED DRAWER 7, Y5N ONE (09:11)
[2020-10-25] MEDS: LIDOCAINE 5% TOPICAL PATCH TP SCH (09:59)
[2020-10-25] MEDS: PRENATAL VITAMINS W/ FOLIC ACID TABLET (FP) PO SCH (09:59)
[2020-10-25] MEDS: NICOTINE 7 MG/24 HOURS TOPICAL PATCH TD SCH (10:00)
[2020-10-25] MEDS: IBUPROFEN 400 MG TABLET (FP) PO PRN ×2 (10:01→17:49)
[2020-10-25] MEDS: LIDOCAINE PATCH REMOVAL MC SCH (21:17)
[2020-10-25] MEDS: GABAPENTIN 300 MG CAPSULE PO SCH (21:17)
[2020-10-25] MEDS: QUEtiapine FUMARATE 50 MG TABLET PO SCH (21:17)
[2020-10-25] MEDS: THIAMINE HCL 100 MG TABLET (FP) PO SCH (21:17)
[2020-10-26] MEDS: PRENATAL VITAMINS W/ FOLIC ACID TABLET (FP) PO SCH (10:01)
[2020-10-26] MEDS: LIDOCAINE 5% TOPICAL PATCH TP SCH (10:02)
[2020-10-26] MEDS: NICOTINE 7 MG/24 HOURS TOPICAL PATCH TD SCH (10:02)
[2020-10-26] MEDS: METHOCARBAMOL 500 MG TABLET PO PRN ×2 (10:03→20:07)
[2020-10-26] MEDS: IBUPROFEN 400 MG TABLET (FP) PO PRN (10:03)
[2020-10-26] MEDS: LIDOCAINE PATCH REMOVAL MC SCH (22:01)
[2020-10-26] MEDS: QUEtiapine FUMARATE 50 MG TABLET PO SCH (22:02)
[2020-10-26] MEDS: THIAMINE HCL 100 MG TABLET (FP) PO SCH (22:02)
[2020-10-26] MEDS: GABAPENTIN 300 MG CAPSULE PO SCH (22:02)
[2020-10-27] MEDS: NICOTINE 7 MG/24 HOURS TOPICAL PATCH TD SCH (09:53)
[2020-10-27] MEDS: LIDOCAINE 5% TOPICAL PATCH TP SCH (09:53)
[2020-10-27] MEDS: METHOCARBAMOL 500 MG TABLET PO PRN ×2 (09:54→22:23)
[2020-10-27] MEDS: hydrOXYzine PAMOATE 25 MG CAPSULE (FP) PO PRN ×2 (09:54→22:23)
[2020-10-27] MEDS: PRENATAL VITAMINS W/ FOLIC ACID TABLET (FP) PO SCH (09:54)
[2020-10-27] MEDS ORDERED: COVID-19 VAC,AD26(JANSSEN)/PF 0.5 ML IM ONE (10:00)
[2020-10-27] MEDS: GABAPENTIN 100 MG CAPSULE PO SCH (14:18)
[2020-10-27] MEDS: THIAMINE HCL 100 MG TABLET (FP) PO SCH (22:23)
[2020-10-27] MEDS: GABAPENTIN 300 MG CAPSULE PO SCH (22:23)
[2020-10-27] MEDS: QUEtiapine FUMARATE 200 MG TABLET PO SCH (22:24)
[2020-10-27] MEDS: IBUPROFEN 400 MG TABLET (FP) PO PRN (22:24)
[2020-10-27] MEDS: LIDOCAINE PATCH REMOVAL MC SCH (22:26)
[2020-10-28] MEDS: GABAPENTIN 100 MG CAPSULE PO SCH ×2 (07:20→14:37)
[2020-10-28] MEDS: PRENATAL VITAMINS W/ FOLIC ACID TABLET (FP) PO SCH (10:01)
[2020-10-28] MEDS: NICOTINE 7 MG/24 HOURS TOPICAL PATCH TD SCH (10:02)
[2020-10-28] MEDS: LIDOCAINE 5% TOPICAL PATCH TP SCH (10:02)
[2020-10-28] MEDS: IBUPROFEN 400 MG TABLET (FP) PO PRN ×2 (10:04→19:52)
[2020-10-28] MEDS: METHOCARBAMOL 500 MG TABLET PO PRN ×2 (10:04→19:52)
[2020-10-28] MEDS: GABAPENTIN 300 MG CAPSULE PO SCH (21:16)
[2020-10-28] MEDS: THIAMINE HCL 100 MG TABLET (FP) PO SCH (21:16)
[2020-10-28] MEDS: QUEtiapine FUMARATE 200 MG TABLET PO SCH (21:16)
[2020-10-28] MEDS: LIDOCAINE PATCH REMOVAL MC SCH (21:16)
[2020-10-29] MEDS: GABAPENTIN 100 MG CAPSULE PO SCH ×2 (07:02→14:28)
[2020-10-29] MEDS: PRENATAL VITAMINS W/ FOLIC ACID TABLET (FP) PO SCH (09:37)
[2020-10-29] MEDS: NICOTINE 7 MG/24 HOURS TOPICAL PATCH TD SCH (09:38)
[2020-10-29] MEDS: LIDOCAINE 5% TOPICAL PATCH TP SCH (09:38)
[2020-10-29] MEDS: METHOCARBAMOL 500 MG TABLET PO PRN ×2 (09:39→17:46)
[2020-10-29] MEDS: IBUPROFEN 400 MG TABLET (FP) PO PRN ×2 (09:40→17:25)
[2020-10-29] MEDS: LIDOCAINE PATCH REMOVAL MC SCH (21:17)
[2020-10-29] MEDS: THIAMINE HCL 100 MG TABLET (FP) PO SCH (21:17)
[2020-10-29] MEDS: GABAPENTIN 300 MG CAPSULE PO SCH (21:17)
[2020-10-29] MEDS: QUEtiapine FUMARATE 200 MG TABLET PO SCH (21:17)
[2020-10-30] MEDS: GABAPENTIN 100 MG CAPSULE PO SCH ×2 (07:00→14:09)
[2020-10-30] MEDS: IBUPROFEN 400 MG TABLET (FP) PO PRN ×2 (07:01→20:11)
[2020-10-30] MEDS: NICOTINE 7 MG/24 HOURS TOPICAL PATCH TD SCH (10:07)
[2020-10-30] MEDS: PRENATAL VITAMINS W/ FOLIC ACID TABLET (FP) PO SCH (10:07)
[2020-10-30] MEDS: LIDOCAINE 5% TOPICAL PATCH TP SCH (10:07)
[2020-10-30] MEDS: METHOCARBAMOL 500 MG TABLET PO PRN ×2 (10:08→21:21)
[2020-10-30] MEDS: THIAMINE HCL 100 MG TABLET (FP) PO SCH (21:20)
[2020-10-30] MEDS: GABAPENTIN 300 MG CAPSULE PO SCH (21:21)
[2020-10-30] MEDS: LIDOCAINE PATCH REMOVAL MC SCH (21:21)
[2020-10-30] MEDS: QUEtiapine FUMARATE 200 MG TABLET PO SCH (21:21)
[2020-10-31] MEDS: GABAPENTIN 100 MG CAPSULE PO SCH ×2 (06:32→14:12)
[2020-10-31] MEDS: IBUPROFEN 400 MG TABLET (FP) PO PRN ×2 (06:33→21:41)
[2020-10-31] MEDS: LIDOCAINE 5% TOPICAL PATCH TP SCH (09:54)
[2020-10-31] MEDS: PRENATAL VITAMINS W/ FOLIC ACID TABLET (FP) PO SCH (09:54)
[2020-10-31] MEDS: NICOTINE 7 MG/24 HOURS TOPICAL PATCH TD SCH (09:54)
[2020-10-31] MEDS: METHOCARBAMOL 500 MG TABLET PO PRN ×2 (09:55→21:39)
[2020-10-31] MEDS ORDERED: GABAPENTIN 100 MG CAPSULE PO STA (14:52)
[2020-10-31] MEDS: HYDROCORTISONE 0.5% TOPICAL CREAM 30 GM TUBE TP PRN (15:43)
[2020-10-31] MEDS: LIDOCAINE PATCH REMOVAL MC SCH (21:39)
[2020-10-31] MEDS: QUEtiapine FUMARATE 200 MG TABLET PO SCH (21:39)
[2020-10-31] MEDS: THIAMINE HCL 100 MG TABLET (FP) PO SCH (21:39)
[2020-10-31] MEDS: GABAPENTIN 300 MG CAPSULE PO SCH (21:40)
[2020-11-01] MEDS ORDERED: PT OWN MED DRAWER 7, Y5N ONE ×2 (04:52→21:19)
[2020-11-01] MEDS: GABAPENTIN 300 MG CAPSULE PO SCH ×3 (06:22→21:16)
[2020-11-01] MEDS: NICOTINE 7 MG/24 HOURS TOPICAL PATCH TD SCH (09:46)
[2020-11-01] MEDS: PRENATAL VITAMINS W/ FOLIC ACID TABLET (FP) PO SCH (09:46)
[2020-11-01] MEDS: METHOCARBAMOL 500 MG TABLET PO PRN ×2 (09:47→21:15)
[2020-11-01] MEDS: IBUPROFEN 400 MG TABLET (FP) PO PRN ×2 (09:47→21:17)
[2020-11-01] MEDS: LIDOCAINE 5% TOPICAL PATCH TP SCH (09:48)
[2020-11-01] MEDS: QUEtiapine FUMARATE 200 MG TABLET PO SCH (21:15)
[2020-11-01] MEDS: THIAMINE HCL 100 MG TABLET (FP) PO SCH (21:16)
[2020-11-01] MEDS: hydrOXYzine PAMOATE 25 MG CAPSULE (FP) PO PRN (21:16)
[2020-11-01] MEDS: HYDROCORTISONE 0.5% TOPICAL CREAM 30 GM TUBE TP PRN (21:19)
[2020-11-01] MEDS: LIDOCAINE PATCH REMOVAL MC SCH (21:21)
[2020-11-02] MEDS: GABAPENTIN 300 MG CAPSULE PO SCH ×3 (06:31→21:38)
[2020-11-02] MEDS: PRENATAL VITAMINS W/ FOLIC ACID TABLET (FP) PO SCH (09:46)
[2020-11-02] MEDS: IBUPROFEN 400 MG TABLET (FP) PO PRN ×2 (09:48→21:37)
[2020-11-02] MEDS: LIDOCAINE 5% TOPICAL PATCH TP SCH (09:48)
[2020-11-02] MEDS: METHOCARBAMOL 500 MG TABLET PO PRN ×2 (09:48→21:38)
[2020-11-02] MEDS: NICOTINE 7 MG/24 HOURS TOPICAL PATCH TD SCH (09:49)
[2020-11-02] MEDS: THIAMINE HCL 100 MG TABLET (FP) PO SCH (21:38)
[2020-11-02] MEDS: QUEtiapine FUMARATE 200 MG TABLET PO SCH (21:38)
[2020-11-02] MEDS: hydrOXYzine PAMOATE 25 MG CAPSULE (FP) PO PRN (21:38)
[2020-11-02] MEDS: LIDOCAINE PATCH REMOVAL MC SCH (21:44)
[2020-11-03] MEDS: GABAPENTIN 300 MG CAPSULE PO SCH ×3 (06:19→21:04)
[2020-11-03] MEDS: IBUPROFEN 400 MG TABLET (FP) PO PRN ×2 (08:34→20:05)
[2020-11-03] MEDS: METHOCARBAMOL 500 MG TABLET PO PRN ×2 (08:34→20:05)
[2020-11-03] MEDS: LIDOCAINE 5% TOPICAL PATCH TP SCH (09:44)
[2020-11-03] MEDS: NICOTINE 7 MG/24 HOURS TOPICAL PATCH TD SCH (09:45)
[2020-11-03] MEDS: PRENATAL VITAMINS W/ FOLIC ACID TABLET (FP) PO SCH (09:45)
[2020-11-03] MEDS: QUEtiapine FUMARATE 200 MG TABLET PO SCH (21:04)
[2020-11-03] MEDS: THIAMINE HCL 100 MG TABLET (FP) PO SCH (21:04)
[2020-11-03] MEDS: hydrOXYzine PAMOATE 25 MG CAPSULE (FP) PO PRN (21:05)
[2020-11-03] MEDS: LIDOCAINE PATCH REMOVAL MC SCH (21:06)
[2020-11-04] MEDS: GABAPENTIN 300 MG CAPSULE PO SCH ×3 (06:43→21:34)
[2020-11-04] MEDS: PRENATAL VITAMINS W/ FOLIC ACID TABLET (FP) PO SCH (10:04)
[2020-11-04] MEDS: hydrOXYzine PAMOATE 25 MG CAPSULE (FP) PO PRN ×3 (10:05→21:34)
[2020-11-04] MEDS: METHOCARBAMOL 500 MG TABLET PO PRN ×2 (10:05→21:34)
[2020-11-04] MEDS: LIDOCAINE 5% TOPICAL PATCH TP SCH (10:05)
[2020-11-04] MEDS: NICOTINE 7 MG/24 HOURS TOPICAL PATCH TD SCH (10:05)
[2020-11-04] MEDS: IBUPROFEN 400 MG TABLET (FP) PO PRN ×2 (10:05→21:35)
[2020-11-04] MEDS: QUEtiapine FUMARATE 200 MG TABLET PO SCH (21:34)
[2020-11-04] MEDS: THIAMINE HCL 100 MG TABLET (FP) PO SCH (21:34)
[2020-11-04] MEDS: LIDOCAINE PATCH REMOVAL MC SCH (21:36)
[2020-11-05] MEDS: GABAPENTIN 300 MG CAPSULE PO SCH ×3 (06:39→21:22)
[2020-11-05 07:11] VITALS: TEMP 97.9
[2020-11-05] MEDS: NICOTINE 7 MG/24 HOURS TOPICAL PATCH TD SCH (09:34)
[2020-11-05] MEDS: LIDOCAINE 5% TOPICAL PATCH TP SCH (09:34)
[2020-11-05] MEDS: PRENATAL VITAMINS W/ FOLIC ACID TABLET (FP) PO SCH (09:35)
[2020-11-05] MEDS: IBUPROFEN 400 MG TABLET (FP) PO PRN ×2 (09:36→21:23)
[2020-11-05] MEDS: METHOCARBAMOL 500 MG TABLET PO PRN ×2 (09:36→21:22)
[2020-11-05] MEDS: hydrOXYzine PAMOATE 25 MG CAPSULE (FP) PO PRN ×2 (09:37→21:22)
[2020-11-05] MEDS: LIDOCAINE PATCH REMOVAL MC SCH (21:22)
[2020-11-05] MEDS: QUEtiapine FUMARATE 200 MG TABLET PO SCH (21:22)
[2020-11-05] MEDS: THIAMINE HCL 100 MG TABLET (FP) PO SCH (21:22)
[2020-11-06] MEDS: GABAPENTIN 300 MG CAPSULE PO SCH (06:11)
[2020-11-06] MEDS: IBUPROFEN 400 MG TABLET (FP) PO PRN (06:11)
[2020-11-06] MEDS: METHOCARBAMOL 500 MG TABLET PO PRN (06:11)
[2020-11-06 07:09] VITALS: BP 110/66; PULSE 87
[2020-11-06] MEDS: PRENATAL VITAMINS W/ FOLIC ACID TABLET (FP) PO SCH (09:35)
[2020-11-06] MEDS: LIDOCAINE 5% TOPICAL PATCH TP SCH (09:36)
[2020-11-06] MEDS: NICOTINE 7 MG/24 HOURS TOPICAL PATCH TD SCH (09:36)
== END 2020-11-06 10:10 | disposition home or self-care (01) | DRG 772 ==
LOC: YASAS 18:01 → Y3W 18:03 → Y5N 10-24 01:13
PROVIDERS: ADMIT Allergy & Immunology; ATTEND Allergy & Immunology
PROC: HZ42ZZZ Group Counseling for Substance Abuse Treatment, Cognitive-Behavioral (ICD-10-PCS; principal; 2020-10-23)
DX: F10.20 Alcohol dependence, uncomplicated (principal); F14.20 Cocaine dependence, uncomplicated; F13.20 Sedative, hypnotic or anxiolytic dependence, uncomplicated; F15.20 Other stimulant dependence, uncomplicated; F17.210 Nicotine dependence, cigarettes, uncomplicated; F19.282 Other psychoactive substance dependence with psychoactive substance-induced sleep disorder; F19.24 Other psychoactive substance dependence with psychoactive substance-induced mood disorder; Z21 Asymptomatic human immunodeficiency virus [HIV] infection status; G47.00 Insomnia, unspecified; M54.5 Low back pain; G89.29 Other chronic pain; Z62.810 Personal history of physical and sexual abuse in childhood; Z86.59 Personal history of other mental and behavioral disorders
CPT/HCPCS: 0031A; 91303